=== PATIENT | female | born 1950 | race Caucasian/White ===

== ENCOUNTER → 2016-11-27 | Day surgery (SDC) | payer MEDICARE, OTHER ==
[~2016-11-27] MED LIST: ASPIRIN PO; ASPIRIN81 M1 PO; ASPIRIN81 M2 PO; ATENOLOL-CHLOR1 EACH PO; ATENOLOL50 MG PO; BACTRIM DS TABL1 TA1 PO; DOXYCYCLINE PO; FAMOTIDINE PO; GLUCOTROL PO; INVANZ1 G/VIA1 IV; KCL PO; LEVAQUIN750 M1 PO; LIPITOR20 MG PO; LISINOPRIL10 MG PO; LODINE XL PO; MEDROL PO; METFORMIN HCL500 M1 PO; METFORMIN PO; NATEGLINIDE120 MG PO; NEXIUM PO; OMEPRAZOLE40 M1 PO; OMEPRAZOLE40 MG PO; PERCOCET5/325 PO; PHENERGAN SUPP25 MG PR; PREMARIN PO; PREMARIN0.3 MG PO; PREMARIN0.625 MG PO; PRILOSEC40 MG PO; PROMETHAZINE HC25 MG PO; SIMVASTATIN40 MG PO; STARLIX60 MG PO; TENORETIC 100 T1 TAB PO; VISTARIL PO; ZOCOR PO
--- NOTE | ~2016-11-27 | OR ---
Unit #: [id number] #: [id number] Patient: ISABEL MCADAMS [id number] [address] [address] [id number] MR#: [id number] NAME: ISABEL MCADAMS ROOM: Date of Procedure: 11/27/2016 Admission Date: 11/27/2016 Surgeon: Kentrell Ford M.D. : 1950 Attending Physician: Kentrell Ford M.D. Referring Physician: Kentrell Ford M.D. Primary Care Physician: Rebel Goddard M.D. OPERATIVE REPORT PREOPERATIVE DIAGNOSES Intermittent dysphagia. The patient also has history of severe retrosternal ascending heartburn, postprandial dyspepsia, and breakthrough symptoms especially in the evenings. PROCEDURES PERFORMED Upper gastrointestinal endoscopy and biopsy. POSTOPERATIVE DIAGNOSES Grade 1 distal erosive esophagitis. Otherwise, examination was normal up to third part of duodenum. A biopsy was obtained from the antrum for CLOtest. RECOMMENDATIONS In view of significant breakthrough symptoms, the patient is advised to use omeprazole 40 mg p.o. b.i.d. She will be followed up in the office in 3 months' time. SEDATION USED MAC. DESCRIPTION OF PROCEDURE Following detailed explanation of the potential risks and complications of an upper endoscopy, namely perforation, bleeding, and complication related to sedation, the patient was brought to GI lab and laid in the left lateral decubitus position. Lubricated tip of the Olympus video upper endoscope was passed through the bite block into the proximal esophagus under direct vision. The entire esophageal mucosa was examined. The patient was noted to have grade 1 distal erosive esophagitis. The scope was then advanced into the gastric cavity and the latter was insufflated. Mucosa of the fundus, body, and antrum was examined and appeared unremarkable. Pylorus was intubated with visualization of the normal duodenal bulb and second and third part of the duodenum. Upon withdrawal and retroflexion, incisura, cardia, and greater curve was examined and biopsy was obtained from the antrum for CLOtest. The scope was then withdrawn in the distal esophagus. The entire esophageal mucosa was examined all the way up to pharynx. No additional findings were noted. The patient tolerated the procedure without any postprocedure complications. Dictated by... Unit #: [id number] #: [id number] Patient: ISABEL MCADAMS Guanaco Moore TD: 11/27/2016 22:54 JOB #: [id number] OPERATIVE REPORT Page 1 of 1 X Kentrell Ford MD PROCEDURE OPERATIVE NOTE
== END | disposition home or self-care (01) ==
LOC: COPS 09:44
DX: K20.8 Other esophagitis (principal); I10 Essential (primary) hypertension; K21.9 Gastro-esophageal reflux disease without esophagitis; M19.90 Unspecified osteoarthritis, unspecified site; Z87.440 Personal history of urinary (tract) infections; Z88.0 Allergy status to penicillin; Z88.5 Allergy status to narcotic agent; Z91.041 Radiographic dye allergy status; Z79.82 Long term (current) use of aspirin; Z79.899 Other long term (current) drug therapy; Z90.49 Acquired absence of other specified parts of digestive tract; Z90.710 Acquired absence of both cervix and uterus; Z98.890 Other specified postprocedural states
CPT/HCPCS: 82947; 87077